=== PATIENT | female | born 1955 | race Caucasian/White ===

== ENCOUNTER → 2016-06-06 | Outpatient (CLI) | payer BC ==
[~2016-06-06] MED LIST: BENADRYL-DPS25 MG PO; CELEBREX100 MG PO; DIOVAN320 MG PO; DULCOLAX-DPS10 MG PO; FLEET ENEMA133 ML PR; GLUCOPHAGE-DPS500 MG PO; GLUCOPHAGE1000 MG PO; HYDROCODONE 5MG/5 MG PO; JANUVIA100 MG PO; LANTUS SOL100 UNIT/1 SQ; LANTUS100 UNITS/ SQ; LASIX DPS20 MG PO; MAALOX DPS30 ML PO; MILK OF MAGNESI10 ML PO; PERCOCET 5 DPS1 TAB PO; SENOKOT S1 TAB PO; SURFAK DPS240 MG PO; SYNTHROID DP0.125 MG PO; TYLENOL DPS325 MG PO; ULTRAM DPS50 MG PO; ZOCOR DPS40 MG PO
== END | disposition home or self-care (01) ==
LOC: RAD.S 08:48
DX: Z12.31 Encounter for screening mammogram for malignant neoplasm of breast (principal); R92.1 Mammographic calcification found on diagnostic imaging of breast

== ENCOUNTER → 2016-09-07 | Outpatient (CLI) | payer BC | END | disposition home or self-care (01) | LOC: RAD.S 15:32 | DX: R22.2 Localized swelling, mass and lump, trunk (principal) ==